=== PATIENT | female | born 1995 | race Caucasian/White ===

== ENCOUNTER 2019-07-31 12:39 | Emergency (ER) | payer OTHER, MEDICAID, SELFPAY ==
[2019-07-31 12:40] VITALS: BP 112/69; PULSE 125; RESP 20; TEMP 36.6; O2SAT 98; BMI 22.4
[2019-07-31 12:49] VITALS: BP 112/69; PULSE 125; RESP 20; TEMP 36.6; O2SAT 98
[2019-07-31] MEDS: LORazepam 1 MG Tablet PO (13:13)
--- NOTE | 2019-07-31 14:59 | ED.DCSUM_ITS ---
History of Present Illness Chief Complaint: Abscess Narrative: Patient presenting for evaluation secondary to an abscess. Patient has been developing an abscess on the left buttock for approximately a week. Patient has an underlying history of some mild MR with cerebral palsy. Mom states that the patient was having difficulty with sitting and even with allowing people to look at it. Patient was supposed to be seen in the surgery office today to have this incised and drained, but surgery was unable to get to her appointment today, so they recommended that she come to the emergency department. Patient has been having some chills and decreased appetite but no objective fevers. Pain is moderate worse with palpation. Past Medical History - Allergies and Home Meds Allergies/Adverse Reactions: Allergies amoxicillin [From Trimox] Allergy (Verified 07/31/19 12:43) Rash sulfamethoxazole [From Bactrim] Allergy (Verified 07/31/19 12:43) Rash trimethoprim [From Bactrim] Allergy (Verified 07/31/19 12:43) Rash Primary Care Physician: Nivia Conklin MD [STAFF PHYSICIAN] - (Followup in 1-2 days for wound check) Past Medical History: - - Cerebral palsy Smoking Status: Never smoker Review of Systems All systems negative except as indicated General: Reports: Malaise Skin: Reports: Abscess Physical Exam Vital Signs/Narrative: Vital Signs Temp Pulse Resp BP Pulse Ox 07/31/19 12:49 98 F 125 H 20 H 112/69 98 07/31/19 12:40 98 F 125 H 20 H 112/69 98 General: Well nourished, Well developed Head: Normocephalic ENT: Moist mucous membranes Neck: Supple Cardiovascular: Regular rhythm, Tachycardia Respiratory: No distress Abdomen: Soft, Nontender Rectal: - - Chaperoned exam of the patient's buttock area shows approximately a 9 cm area of erythema with induration and centralized fluctuance with tenderness to palpation in that area. Extremities: Nontender Neurological: Alert Diagnostic/Tx/Re-eval - Medical Decision Making Patient presented secondary to an abscess. Patient had a significant amount of anxiety and difficulty with was examining it, so she was given Ativan and 45 minutes were allowed to pass and then she was reexamined and was much more comfortable. Incision and drainage was performed as noted in the procedure note. Packing was placed, patient will be placed on doxycycline due to all ergies as well as the overlying skin changes. Patient will follow-up with general surgery in the next 1 to 2 days. Procedures Procedure(s): Abscess incision and drainage: Patient was placed in the right lateral decubitus position. Wound was cleansed with alcohol, and was anesthetized using 10 cc of 1% lidocaine. Good anesthesia was obtained. 11 blade scalpel was utilized, the area of greatest fluctuance was localized, and incision and drainage was done with a 2 cm stab incision. Copious amount of purulent material was expressed. Loculations were broken with hemostats, and the wound was irrigated with sterile saline. Approximately 15 cm of quarter inch iodoform gauze was placed, a bulky dressing was placed over top. Patient tolerated this well. ED Disposition - Plan for ED Patient: Disposition: Home or Assisted Living Diagnosis: Left buttock abscess Instructions: ABSCESS, Incision and Drainage Prescriptions: Doxycycline 100 mg PO BID #20 cap Prescription Printed Referrals: Nivia Conklin MD [STAFF PHYSICIAN] - (Followup in 1-2 days for wound check)
[2019-07-31 15:00] VITALS: RESP 16
[2019-07-31 15:06] VITALS: BP 102/76; PULSE 119; RESP 16; TEMP 37.3; O2SAT 100
--- NOTE | 2019-07-31 15:07 | ED.RN ---
REVIEWED D/C INSTRUCTIONS, FOLLOW UP CARE, PRESCRIPTION, AND S//S THAT WOULD WARRANT A RETURN TO THE ED WITH PT'S PARENTS. PARENTS VERBALIZED AN UNDERSTANDING AND DENIES FURTHER QUESTIONS FOR THIS RN. PT SKIN P/W/D, RESP EVEN AND UNLABORED, PT A&O X 3, NO DISTRESS NOTED. PT AMBULATED OUT OF ED, GAIT STEADY.
== END 2019-07-31 15:09 | disposition home or self-care (01) ==
PROVIDERS: Emergency Provider Emergency Medicine; Family Provider Family Medicine; PCP Family Medicine
DX: L02.31 Cutaneous abscess of buttock (principal); F41.9 Anxiety disorder, unspecified; G80.9 Cerebral palsy, unspecified
CPT/HCPCS: 10060; 99282